=== PATIENT | female | born 1980 | race Caucasian/White ===

== ENCOUNTER 2016-11-20 22:35 | Emergency (ER) | payer MEDICAID ==
[2016-11-20 22:59] VITALS: BP 123/74
[2016-11-21] MEDS ORDERED: NOR10T PO (23:45)
[2016-11-21] MEDS ORDERED: LIPI10 PO (23:45)
[2016-11-21] MEDS ORDERED: XANAX2 MG PO (23:45)
[2016-11-21] MEDS ORDERED: SYNTHROID0.05 MG PO (23:46)
[2016-11-21] MEDS ORDERED: ABILIFY5 M1 PO (23:47)
[2016-11-21] MEDS ORDERED: ZYLOPRIM300 MG PO (23:47)
[2016-11-21] MEDS ORDERED: ZOLOFT25 MG PO (23:47)
[2016-11-21] MEDS ORDERED: PROCRIT2000 U/ML IJ (23:48)
== END 2016-11-21 02:09 | disposition left against medical advice (07) ==
LOC: ED 22:35
DX: Z53.21 Procedure and treatment not carried out due to patient leaving prior to being seen by health care provider (principal)

== ENCOUNTER 2016-11-21 21:50 | Inpatient (IN) | payer MEDICAID ==
[~2016-11-21] VITALS: Ht 149.9 cm; Wt 63.6 kg
--- NOTE | 2016-11-21 22:43 | NUR ---
PT SITTING UP IN BED, AAOX4 WITH C/O REDNESS/DRAINAGE AT FISTULA SITE X 3 DAYS. FISTULA PLACED 2 WEEKS AGO.
[2016-11-21 22:52] LABS: PLATELET COUNT 380 x10^3mcL (130-400)
[2016-11-21 22:53] LABS: BASOPHIL % 4.6 % (0-2); RED CELL DISTRIBUTION WIDTH 19.5 % (11.5-14.5)
[2016-11-21 23:11] LABS: ALBUMIN 3.6 g/dL (3.4-5.0); BILIRUBIN TOTAL 0.2 mg/dL (0.20-1.00); CARBON DIOXIDE 18.4 mmol/L (21-32); POTASSIUM SERUM 3.4 mmol/L (3.5-5.1)
[2016-11-21 23:15] LABS: TOTAL PROTEIN, SERUM 8.5 g/dL (6.4-8.2)
[2016-11-21 23:17] LABS: CK-MB < 0.5 ng/mL (0-3.6); CREATINE KINASE 47 U/L (26-192); CREATININE SERUM 5.5 mg/dL (0.6-1.0)
--- NOTE | 2016-11-21 23:44 | NUR ---
PT RESTING IN BED WITH NO SIGNS OF DISTRESS AT THIS TIME.
[2016-11-21] MEDS ORDERED: XANAX2 MG PO (23:45)
[2016-11-21] MEDS ORDERED: NOR10T PO (23:45)
[2016-11-21] MEDS ORDERED: LIPI10 PO (23:45)
[2016-11-21] MEDS ORDERED: SYNTHROID0.05 MG PO (23:46)
[2016-11-21] MEDS ORDERED: ZYLOPRIM300 MG PO (23:47)
[2016-11-21] MEDS ORDERED: ZOLOFT25 MG PO (23:47)
[2016-11-21] MEDS ORDERED: ABILIFY5 M1 PO (23:47)
[2016-11-21] MEDS ORDERED: PROCRIT2000 U/ML IJ (23:48)
[2016-11-22] VITALS (7 sets, daily range): BP systolic 92–112; BP diastolic 50–71
--- NOTE | 2016-11-22 00:18 | NUR ---
REPORT GIVEN TO ANTHONY VILLANUEVA.
[2016-11-22 00:49] LABS: AMYLASE 92 U/L (25-115); HDL CHOLESTEROL 50 mg/dL (40-60); LIPASE 207 IU/L (73-393); MAGNESIUM 3.3 mg/dL (1.8-2.4); PHOSPHOROUS 4.7 mg/dL (2.5-4.9)
[2016-11-22 00:51] LABS: CHOLESTEROL 413 mg/dL (<200); CHOLESTEROL/HDL RATIO 8.3; TRIGLYCERIDES 916 mg/dL (<150)
[2016-11-22 00:54] LABS: T3 TOTAL 0.55 ng/mL
--- NOTE | 2016-11-22 01:03 | NUR ---
RECEIVED PATIENT FROM ED VIA GUERNEY, PATIENT ALERT AND ORIENTED SPOUSE AT BEDSIDE, TELE # 11 SR, IV ACCESS TO R HAND WNL, C/O PAIN TO LUE AND WILL MEDICATE ORDERED, CULTURE OBTAINED FOR SELAM WOUND, WOUND PHOTO DOCUMENTED, ORIENTED PATIENT TO ROOM AND SURROUNDINGS, BED IN LOW POSITION, BED RAILS UP X 2, CALL LIGHT WITHIN REACH, WILL ENDORSE CARE TO PRIMARY NURSE ANTHONY VILLANUEVA
--- NOTE | 2016-11-22 01:04 | NUR ---
PT C/O PAIN TO HER LT ARM AV SHUNT SITE 7/10 LEVEL. NORCO 7.5/325 MG PO GIVEN.
[2016-11-22 01:11] LABS: FREE T4 0.67 ng/dL (0.76-1.46); FREE THYROXINE INDEX 1.4 ug/dL (1.4-4.5); T4(THYROXINE) 4.7 ug/dL (4.7-13.3)
--- NOTE | 2016-11-22 01:13 | NUR ---
INFORMED DR. SAUCEDA REGARDING LACTIC=2.9 AND K=3.4 .
--- NOTE | 2016-11-22 02:04 | NUR ---
PT VERBALIZED RELIEF OF LT ARM PAIN FROM NORCO AND STATED PAIN LEVEL IS DOWN TO 2/10.
[2016-11-22 02:37] LABS: microscopic required? YES; urine erythrocyte 3+ (NEGATIVE)
[2016-11-22 02:47] LABS: AMPHETAMINE QUAL UR NONE DETECTED (NEG <=1000)
--- NOTE | 2016-11-22 05:05 | NUR ---
PT ASLEEP COMFORTABLY AT THIS TIME. SHE WAS MEDICATED FOR PAIN X1 W/ RELIEF. DRESSING TO LT ARM AV SHUNT SITE CDI. PT VOIDED X1. W/ IVF NS AT 100 CC/HR.
[2016-11-22 06:16] LABS: BASOPHIL % 0.3 % (0-2); PLATELET COUNT 333 x10^3mcL (130-400)
[2016-11-22 06:30] LABS: CARBON DIOXIDE 17.1 mmol/L (21-32); MAGNESIUM 3.1 mg/dL (1.8-2.4); POTASSIUM SERUM 3.4 mmol/L (3.5-5.1)
[2016-11-22 06:57] LABS: CREATININE SERUM 5.4 mg/dL (0.6-1.0); RED CELL DISTRIBUTION WIDTH 19.6 % (11.5-14.5)
--- NOTE | 2016-11-22 06:58 | NUR ---
DR. SAUCEDA INFORMED REGARDING BUN=79 AND CREA=5.4 .
--- NOTE | 2016-11-22 07:54 | NUR ---
RECEIVED PT LAYING IN BED ASLEEP. NO APPARENT SIGNS OF ACUTE DISTRESS NOTED AT THIS TIME, RESPIRATIONS EVEN AND UNLABORED. IV SITE APPEARS PATENT AND INFUSING WELL. CALL LIGHT WITHIN REACH, BED IN LOWEST POSITION. WILL CONTINUE TO MONITOR
--- NOTE | 2016-11-22 08:30 | NUR ---
AM ROUNDS DONE. PER DR. CISNEROS, WILL ARRANGE FOR EXPORT DOCUMENTS CLERK TO COMEV IN FOR CONSULT. WILL CONTINUE WITH IV ABX. PT AGREES TO PLAN OF CARE. CALL LIGHT WITHIN REACH. BED IN LOWEST POSITION. WILL CONTINUE TO MONITOR
--- NOTE | 2016-11-22 10:56 | NUR ---
PT ASKED FOR PRN XANAX. ACCORDING TO EMAR, MED IS SCHEDULE FOR HS TIMES. CALLED DR. RAMIREZ AND SHE WILL LOOK INTO ADJUSTING ORDER. ALSO, PT ASKED ABOUT FOOD. DOCTOR STATES THAT SHE WAS WAITING FOR THE NEPHRO CONSULT BEFORE PROCEDING WITH DIET ORDER. WILL CONTINUE TO MONITOR
--- NOTE | 2016-11-22 12:54 | NUR ---
PT C/O LEFT ARM PAIN AT SITE OF CELLULITIS. GIVEN NORCO PO PRN FOR PAIN. CALL LIGHT WITHIN REACH. BED IN LOWEST POSITION. FAMILY AT BEDSIDE. WILL CONTINUE TO MONITOR
--- NOTE | 2016-11-22 13:39 | NUR ---
CALLED DR. RAMIREZ AND SPOKE TO HER IN REGARDS TO THE THE ORDER DR. MCGOVERN PUT IN FOR K+ 30 mEQ AND SODIUM BARCARB. PHARMACY CALLED UP QUESTIONING ORDER BECAUSE PT ALREADY HAS K+ TAB ORDER BID ON EMAR. DR. RAMIREZ STATED THAT SHE WOULD REACH OUT TO DR. MCGOVERN TO DISCUSS THE NEW ORDERS BECAUSE SHE WAS NOT AWARE OF THEM. WILL CONTINUE TO MONITOR
--- NOTE | 2016-11-22 14:22 | NUR ---
REPLACED DRESSING TO L UPPER ARM. NO VISIBLE DRAINAGE TO SITE NOTED. DRESSING IS CDI. WILL CONTINUE TO MONITOR
--- NOTE | 2016-11-22 14:25 | NUR ---
SPOKE TO DR. RAMIREZ IN REGARDS TO SODIUM BICARB AND POTASSIUM ORDER. STATED THAT SHE HAD PUT A CALL OUT TO DR. MCGOVERN BUT HAS YET TO HEAR BACK FROM HER. DR. RAMIREZ REQUESTED TO HOLD OFF ON ADMINISTERING ORDER UNTIL SHE HEARS BACK FROM HER. WILL CONTINUE TO MONITOR
--- NOTE | 2016-11-22 17:59 | NUR ---
PT RESTING IN BED ASLEEP. NO APPARENT SIGNS OF ACUTE DISTRESS NOTED. RESPIRATIONS EVEN AND UNLABORED. IV INFUSING WELL. CALL LIGHT WITHIN REACH. BED IN LOWEST POSITION. WILL CONTINUE TO MONITOR
--- NOTE | 2016-11-22 19:30 | NUR ---
PT IS ALERT AND ORIENTED X 4. PLEASANT AND COOPERATIVE. LUNGS CLEAR ON AUSCULTATIONS BILATERALLY. ROOM AIR. 02SAT 99% ROOM AIR. AMBULATORY. STILL HAS IV NS AT 100 ML PER HOUR INFUSING WELL IN THE RIGHT FOREARM. VANCOMYCIN IVPB WAS ORDERED. STILL HAS LEFT ARM DRESSING FOR THE LEFT INCISION SHUNT PLACEMENT DRESSING. STILL HAS IV NS AT 100 ML PER HOUR IN THE RIGHT FOREARM. VOIDING WELL. WILL MONITOR.
--- NOTE | 2016-11-22 21:35 | NUR ---
PT C/O MODERATE HEADACHE PAIN 710. MEDICATED WITH NORCO 1 TAB PO. WILL MONITOR. XANAX 2 MG PO WAS ALSO GIVEN. VANCOMYCIN 1 GM IVPB WAS ADMINISTERED.
--- NOTE | 2016-11-23 04:58 | NUR ---
PT IS RESTING WELL. STILL HAS IV NS AT 100 ML PER HOUR INFUSING WELL. RECEIVED A DOSE OF VANCOMYCIN IVPB LAST NIGHT. WITHOUT ADVERSE REACTION NOTED. RECEIVED XANAX LAST NIGHT BEFORE GOING TO SLEEP. TOLERATED WELL. MADE COMFORTABLE IN BED. CALL LIGHT WITHIN EASY REACH.
[2016-11-23 06:21] LABS: CALCIUM 8.3 mg/dL (8.5-10.1); CARBON DIOXIDE 15.6 mmol/L (21-32); MAGNESIUM 2.8 mg/dL (1.8-2.4); POTASSIUM SERUM 4.2 mmol/L (3.5-5.1)
[2016-11-23 06:22] LABS: BASOPHIL % 1.2 % (0-2); PLATELET COUNT 325 x10^3mcL (130-400)
[2016-11-23 06:25] LABS: CREATININE SERUM 5.1 mg/dL (0.6-1.0)
[2016-11-23 06:27] VITALS: BP 94/52
[2016-11-23 06:33] LABS: RED CELL DISTRIBUTION WIDTH 19.4 % (11.5-14.5)
--- NOTE | 2016-11-23 07:00 | NUR ---
DR. MCGOVERN AT BEDSIDE ASSESSING PT.
--- NOTE | 2016-11-23 07:26 | NUR ---
PT RECEIVED DURING CHANGE OF SHIFT, A/OX4, NO TELE, DENIES CHEST PAIN, PULSES PRESENT, NO EDEMA NOTED, LUNGS CTA ON RA, DENIES SOB, BREATHING EVEN AND UNLABORED, LBM 11/22/16, BOWEL SOUNDS ACTIVE, ABLE TO VOID, AV SHUNT TO SELAM, BRUIT AND THRILL PRESENT, HAS NOT STARTED HD TX YET, AMBULATORY, DRESSING TO AV SHUNT CDI, REDNESS TO AV SHUNT NOTED, NO DRAINAGE, DENIES ALL PAIN AT THIS TIME, IV TO RFA INFUSING NS AT 100ML/HR, CALM AND COOPERATIVE, CALL LIGHT WITHIN REACH, WILL CONTINUE TO MONITOR.
--- NOTE | 2016-11-23 08:17 | NUR ---
PT DENIES SOB, DENIES PAIN, MORNING MEDS GIVEN, CALL LIGHT WITHIN REACH, FINISHED 80% OF BREAKFAST, CALL LIGHT WITHIN REACH, WILL CONTINUE TO MONITOR.
--- NOTE | 2016-11-23 08:25 | NUR ---
DR. ZHANG AND RESIDENTS MAKING ROUNDS, PLAN OF CARE DISCUSSED, NEED FOR IV ANTIBIOTICS DISCUSSED.
--- NOTE | 2016-11-23 09:04 | NUR ---
PT ASLEEP, NO INDICATION OF PAIN, BREATHING EVEN AND UNLABORED, CALL LIGHT WITHIN REACH, WILL CONTINUE TO MONITOR.
[2016-11-23 09:58] VITALS: BP 98/61
--- NOTE | 2016-11-23 10:13 | NUR ---
PT ASLEEP, NO INDICATION OF PAIN, BREATHING EVEN AND UNLABORED, CALL LIGHT WITHIN REACH, WILL CONTINUE TO MONITOR.
--- NOTE | 2016-11-23 11:03 | NUR ---
PT DENIES SOB, C/O H/A 10/25, REQUESTED NORCO, MEDICATED PER EMAR, CALL LIGHT WITHIN REACH, WILL CONTINUE TO MONITOR.
--- NOTE | 2016-11-23 12:15 | NUR ---
PT ASLEEP BUT AROUSABLE, NO INDICATION OF PAIN, BREATHING EVEN AND UNLABORED, CALL LIGHT WITHIN REACH, WILL CONTINUE TO MONITOR.
--- NOTE | 2016-11-23 13:05 | NUR ---
PT ASLEEP, NO INDICATION OF PAIN, BREATHING EVEN AND UNLABORED, CALL LIGHT WITHIN REACH, WILL CONTINUE TO MONITOR.
--- NOTE | 2016-11-23 13:13 | NUR ---
Initial Nutrition Assessment Dx: Left arm cellulitis/fistula infection PMHx: Glycogen storage disease Type I, kidney failure, anemia and gout PSHx: Liver biopsy, Corrective eye surgery for wandering eye, AV fistula placement in left arm Labs: (11/23) B, BUN:73H, Cr:5.1H, Ca:8.3L, Phos:6.0H, H/H:8.5/26L, (11/21) TH, Chol:413H, LDL:213H, M.8H, Lactic acid:2.9H, Meds: Colace, Lactinex, Oscal, Sodium Bicarbonate, NS IVF, Synthroid, Zofran. Diet:Renal PO Intake: (11/22) L:100%, D:80% Ht: 60in Wt: 140#, 63.61kg BMI: 28.3kg/m2 (overweight) IBW: 100#, 45kg %IBW: 140% UBW:134#. Pt reports weight gain possibly 2/2 thyroid issue. Age:36 Food Allergies:None Skin:dressing over av shunt, av shunt shows redness, no drainage noted. Dima:21 Edema:No edema GI: Last BM:11/22 Pt admitted with left arm cellulitis at site of AV fistula. Per progress note 11/22, pt was seen by timber faller Dr Diamond, who does not recommend urgent dialysis at this time. MD ordered sodium bicarbonate TID due to acidosis.Dr. Marley consulted. Pt states she feels much better. Per progress note 11/23, pt's antibiotics changed from vancomycin to be dosed by pharmacy. Pt will stay at least one more day for IV vancomycin. During visit pt reports good appetite with no c/o N/V/D. Pt states she will probably be discharged tomorrow and she has an appointment with a timber faller and are in the process of finding her a dialysis center to start hemodialysis. Problem with: N: NoV:No D:No C:Pt c/o constipation with BM yesterday with hard stool most likely secondary to pain medications, per pt. Problems with: Chewing:No Swallowing: No Current appetite: good Recent wt change:6# wt gain %wt change:-4% Vitamin/Supplement use:Calcium, Iron and Fish oil. Special diet at home:Regular Physical activity:walking Education: Provided pt with educational handout, "Chronic Kidney Disease Stage 5 Nutrition Therapy" Pt was concerned as to what to eat since she will be starting dialysis. Went over foods high in protein, potassium and phosphorus. What foods to limit/avoid and what foods are acceptable (low potassium/low phosphorus) Estimated Nutritional Needs Based on ideal body weight 45kg Energy: 1575kcal/d (35kcals/kg for CKD-5, no dialysis) Protein:45 g/d (1.0g/kg adult maintenance/GFR<25, no dialysis) Fluid: 1575ml/d (1 ml/kcal) or per doctor Nutrition Diagnosis 1. Altered nutrition labs related to ESRD as evidenced by elevated BUN: 73, Cr:5.1, Phos: 6.0. Intervention 1.Recommend continue current renal diet. 2. Recommend Nephro-vernon and Phoslo. Monitor/Evaluate Goal: PO intake at least 75% of estimated needs Monitor: PO intake, Labs, GI function F/U in 7 days as low risk 11/30
--- NOTE | 2016-11-23 13:14 | NUR ---
1.Recommend continue current renal diet. 2.Recommend Nephro-vernon and Phoslo. Pt with elevated Phos:6.0
--- NOTE | 2016-11-23 14:05 | NUR ---
PT ASLEEP BUT AROUSABLE, NO INDICATION OF PAIN, BREATHING EVEN AND UNLABORED, CALL LIGHT WITHIN REACH, WILL CONTINUE TO MONITOR.
--- NOTE | 2016-11-23 15:05 | NUR ---
PT ASLEEP, NO INDICATION OF PAIN, BREATHING EVEN AND UNLABORED, CALL LIGHT WITHIN REACH, WILL CONTINUE TO MONITOR.
--- NOTE | 2016-11-23 16:13 | NUR ---
PT DENIES SOB, DENIES PAIN, CALL LIGHT WITHIN REACH, WILL CONTINUE TO MONITOR.
--- NOTE | 2016-11-23 17:13 | NUR ---
PT DENIES SOB, DENIES PAIN, CALL LIGHT WITHIN REACH, WILL CONTINUE TO MONITOR.
[2016-11-23 17:36] VITALS: BP 133/64
--- NOTE | 2016-11-23 18:20 | NUR ---
PT DENIES SOB, C/O PAIN 6/10 IN LEFT ARM, WILL MEDICATE PER EMAR, WILL ENDORSE PT TO NEXT SHIFT.
[2016-11-23 19:05] VITALS: BP 116/73
--- NOTE | 2016-11-23 19:05 | NUR ---
RECIEVED PT AWAKE ALERT AND VERBALLY RESPONSIVE.DENIES CHESTPAIN AT THIS TIME.BP 116/73 MMHG,HR 78.DENIES ANY PAIN.DRESSING TO L ARM SHUNT.NO DRAINAGE NOTED.GOOD BRUIT/THRILLS.WILL CONTINUE TO MONITOR.
--- NOTE | 2016-11-24 04:45 | NUR ---
PT SLEPT WELL.DENIES ANY PAIN ALL NIGHT.DRESSING TO L AV SHUNT CDI.ALL NEEDS MET.WILL CONTINUE TO MONITOR.
[2016-11-24 05:49] VITALS: BP 104/50
[2016-11-24 05:52] VITALS: BP 104/50
[2016-11-24 06:04] LABS: BASOPHIL % 0.2 % (0-2); PLATELET COUNT 309 x10^3mcL (130-400)
[2016-11-24 06:06] LABS: RED CELL DISTRIBUTION WIDTH 19.1 % (11.5-14.5)
[2016-11-24 06:20] LABS: CALCIUM 8.4 mg/dL (8.5-10.1); CARBON DIOXIDE 19.2 mmol/L (21-32); MAGNESIUM 2.4 mg/dL (1.8-2.4); PHOSPHOROUS 5.3 mg/dL (2.5-4.9); POTASSIUM SERUM 3.9 mmol/L (3.5-5.1)
[2016-11-24 06:27] LABS: CREATININE SERUM 4.8 mg/dL (0.6-1.0)
[2016-11-24 06:31] VITALS: BP 109/72
--- NOTE | 2016-11-24 07:45 | NUR ---
RECEIVED PT IN BED. ASSESSED AND DOCUMENTED. DENIES PAIN THIS TIME. SAFTEY PRECAUTIONS ON. WILL MONITOR.
--- NOTE | 2016-11-24 08:10 | NUR ---
AND RESIDENTS DID ROUNDS. EXPLAINED THE PLAN OF CARE AND ANSWERED ALL PT'S QUESTIONS.
--- NOTE | 2016-11-24 08:30 | NUR ---
CHECKED WITH PHARMACY ABOUT VANCOMYCIN AND INFORMED THEM VANCOMYCIN RANDOM IS 20. PHARMACIST SAID THEY ARE BEEN CHECKING ON THAT AND THEY WILL TAKE CARE OF IT.
--- NOTE | 2016-11-24 10:00 | NUR ---
PAGED AND VERIFIED WITH ABOUT POTTASIUM PO ORDER. SAID SHE THINK PT'S POTTASIUM MAY DROP SO GOOD TO GIVE 10MEQ KCL.PHARMACY AWARE.PHARMACIST SAID THEY WILL ORDER.WILL GIVE.
[2016-11-24 10:11] VITALS: BP 105/66
--- NOTE | 2016-11-24 14:00 | NUR ---
PT RESTING IN BED COMFORTABLY. DENIES PAIN THIS TIME. WILL MONITOR.
[2016-11-24 17:27] VITALS: BP 112/76
--- NOTE | 2016-11-24 19:05 | NUR ---
PT RESTING IN BED COMFORTABLY. NO DISTRESS NOTED. GAVE REPORT TO NEXT SHIFT NURSE.
--- NOTE | 2016-11-24 19:50 | NUR ---
PT ALERT/ORIENTED X4. NO C/O PAIN. SMALL AMOUNT OF BROWN DISCHARGE NOTED ON THE INSIDE OF THE DRESSING AND REDNESS NOTED WHERE THE TAPE IS. APPLIED NEW DRESSING WITH NON ADHERENT DRESSING WITH GUAZE DRESSING OVER IT, APPLIED PAPER TAPE TO SECURE DRESSING. PT ASSESSED; SEE NSG FLOWSHEET. SAFETY REINFORCED; SEE EDUCAT SHEET. WILL CONTINUE TO MONITOR.
--- NOTE | 2016-11-24 21:00 | NUR ---
PT AWAKE. NO DISTRESS NOTED. WILL CONTINUE TO MONITOR.
[2016-11-24 23:13] VITALS: BP 121/81
--- NOTE | 2016-11-24 23:30 | NUR ---
PT SLEEPING. NO DISTRESS NOTED. WILL CONTINUE TO MONITOR.
--- NOTE | 2016-11-25 02:14 | NUR ---
PT SLEEPING. NO DISTRESS NOTED. WILL CONTINUE TO MONITOR.
[2016-11-25 05:09] VITALS: BP 109/75
--- NOTE | 2016-11-25 05:19 | NUR ---
PT SLEPT IN LONG INTERVALS THROUGHOUT THE NIGHT. MEDICATED 1X DURING SHIFT FOR PAIN TO LUE (SEE EMAR). WILL CONTINUE TO MONITOR.
[2016-11-25 06:37] LABS: CALCIUM 8.8 mg/dL (8.5-10.1); CARBON DIOXIDE 19.7 mmol/L (21-32); PHOSPHOROUS 4.5 mg/dL (2.5-4.9); POTASSIUM SERUM 4.1 mmol/L (3.5-5.1)
[2016-11-25 06:57] LABS: CREATININE SERUM 4.7 mg/dL (0.6-1.0)
[2016-11-25 07:29] LABS: PLATELET COUNT 329 x10^3mcL (130-400)
[2016-11-25 07:30] LABS: RED CELL DISTRIBUTION WIDTH 18.9 % (11.5-14.5)
--- NOTE | 2016-11-25 07:45 | NUR ---
RECEIVED PT IN BED. ASSESSED AND DOCUMENTED. DENIES PAIN THIS TIME. SAFTEY PRECAUTIONS ON. WILL MONITOR.
[2016-11-25 08:04] LABS: BAND NEUTROPHIL 3 % (0-10); BASOPHIL 0 % (0-2); MONOCYTE 8 % (0-7); SEGMENTED NEUTROPHILS 40 % (37-75)
[2016-11-25 08:05] LABS: rbc morphology (normal/abnorm) ABNORMAL (NORMAL); tear drop cell (dacryocyte) 1+
[2016-11-25 08:06] LABS: PLATELET MORPHOLOGY LARGE PLATELET SEEN
[2016-11-25] MEDS ORDERED: LAC PO (08:14)
--- NOTE | 2016-11-25 08:35 | NUR ---
AND RESIDENTS DID ROUNDS, EXPLAINED THE PLAN OF CARE.
[2016-11-25 09:30] VITALS: BP 113/76
[2016-11-25] MEDS ORDERED: CLINDAMYCIN HC150 MG PO (10:33)
[2016-11-25 13:43] VITALS: BP 113/76
[2016-11-25 13:46] VITALS: BP 113/76
--- NOTE | 2016-11-25 14:30 | NUR ---
DISCHARGE INSTRUCTIONS GIVEN.PB SIGNED AND SENT WITH PT. IV REMOVED AND DRESSING APPLIED. MEDICAL LAB SPECIALIST TOOK PT TO LOBBY VIA W/C ACCOMPANIED BY PT'S .
== END 2016-11-25 14:26 | disposition home or self-care (01) | DRG 383 ==
LOC: ED 21:50 → MU 23:34 → DU 23:34 → MU 11-22 09:54 → DU 11-25 14:26
PROVIDERS: Emergency Medicine; Family Medicine; ADMIT Student in an Organized Health Care Education/Training Program
DX: L03.114 Cellulitis of left upper limb (principal); N17.0 Acute kidney failure with tubular necrosis; E74.01 von Gierke disease; I12.0 Hypertensive chronic kidney disease with stage 5 chronic kidney disease or end stage renal disease; N18.6 End stage renal disease; E87.6 Hypokalemia; M10.9 Gout, unspecified; D64.9 Anemia, unspecified; E78.5 Hyperlipidemia, unspecified; Z68.28 Body mass index [BMI] 28.0-28.9, adult
CPT/HCPCS: 83880; 84439; J0690; J2270; J3370; J7030; Q0092

== ENCOUNTER 2017-01-18 15:43 | Emergency (ER) | payer MEDICAID ==
[~2017-01-18] VITALS: Ht 149.9 cm; Wt 59.0 kg
[~2017-01-18 15:43] MED LIST: ABILIFY5 M1 PO; CLINDAMYCIN HC150 MG PO; LAC PO; LIPI10 PO; NOR10T PO; PROCRIT2000 U/ML IJ; SYNTHROID0.05 MG PO; XANAX2 MG PO; ZOLOFT25 MG PO; ZYLOPRIM300 MG PO
[2017-01-18 16:24] LABS: PLATELET COUNT 274 x10^3mcL (130-400)
[2017-01-18 16:53] LABS: RED CELL DISTRIBUTION WIDTH 15.1 % (11.5-14.5)
[2017-01-18 17:12] LABS: BAND NEUTROPHIL 0 % (0-10); BASOPHIL 0 % (0-2); MONOCYTE 7 % (0-7); PLATELET MORPHOLOGY PLATELETS NORMAL; SEGMENTED NEUTROPHILS 66 % (37-75); rbc morphology (normal/abnorm) NORMAL (NORMAL)
[2017-01-18 17:15] LABS: ERYTHROCYTE SED RATE 109 mm/hr (0-20)
[2017-01-18 17:35] VITALS: BP 108/83
== END 2017-01-18 17:35 | disposition home or self-care (01) ==
LOC: ED 15:43
PROVIDERS: Emergency Medicine
DX: M10.062 Idiopathic gout, left knee (principal); R21 Rash and other nonspecific skin eruption; E74.01 von Gierke disease; E03.9 Hypothyroidism, unspecified; Z79.899 Other long term (current) drug therapy
CPT/HCPCS: 36415; J1885

== ENCOUNTER 2017-03-14 19:39 | Inpatient (IN) | payer MEDICAID ==
[~2017-03-14] VITALS: Ht 149.9 cm; Wt 51.4 kg
[2017-03-14 21:47] LABS: BILIRUBIN TOTAL 0.27 mg/dL (0.20-1.00); CALCIUM 7.1 mg/dL (8.5-10.1); CARBON DIOXIDE 20.6 mmol/L (21-32); FREE T4 0.76 ng/dL (0.76-1.46); TOTAL PROTEIN, SERUM 7.4 g/dL (6.4-8.2)
[2017-03-14 21:51] LABS: CREATININE SERUM 4.3 mg/dL (0.6-1.0); POTASSIUM SERUM 2.6 mmol/L (3.5-5.1)
[2017-03-14 21:53] LABS: UA SPECIFIC GRAVITY <=1.005 (1.005-1.035); microscopic required? YES; urine erythrocyte TRACE (NEGATIVE)
[2017-03-14 21:59] LABS: PLATELET COUNT 499 x10^3mcL (130-400); RED CELL DISTRIBUTION WIDTH 17.4 % (11.5-14.5)
[2017-03-14 22:24] LABS: BAND NEUTROPHIL 0 % (0-10); BASOPHIL 0 % (0-2); MONOCYTE 1 % (0-7); SEGMENTED NEUTROPHILS 41 % (37-75)
[2017-03-14 22:25] LABS: rbc morphology (normal/abnorm) ABNORMAL (NORMAL)
[2017-03-14 22:26] LABS: PLATELET MORPHOLOGY PLATELETS INCREASED
[2017-03-14 23:46] VITALS: BP 111/57
[2017-03-15] VITALS (8 sets, daily range): BP systolic 83–126; BP diastolic 49–85
[2017-03-15 00:45] LABS: T3 TOTAL 0.67 ng/mL
[2017-03-15 00:59] LABS: AMYLASE 102 U/L (25-115); HDL CHOLESTEROL 43 mg/dL (40-60); MAGNESIUM 1.9 mg/dL (1.8-2.4); PHOSPHOROUS 3.5 mg/dL (2.5-4.9)
[2017-03-15 01:00] LABS: FREE T4 0.76 ng/dL (0.76-1.46); T4(THYROXINE) 5.8 ug/dL (4.7-13.3)
[2017-03-15 01:01] LABS: CHOLESTEROL 411 mg/dL (<200); CHOLESTEROL/HDL RATIO 9.6; TRIGLYCERIDES 992 mg/dL (<150)
[2017-03-15 06:27] LABS: IRON 15 ug/dL (50-170)
[2017-03-15 06:28] LABS: TOTAL IRON BINDING CAPACITY 232 ug/dL (250-450)
[2017-03-15 06:37] LABS: CALCIUM 7.3 mg/dL (8.5-10.1); CARBON DIOXIDE 18.6 mmol/L (21-32)
[2017-03-15 06:45] LABS: CREATININE SERUM 4.3 mg/dL (0.6-1.0); POTASSIUM SERUM 2.9 mmol/L (3.5-5.1)
[2017-03-15 06:51] LABS: AMPHETAMINE QUAL UR NONE DETECTED (NEG <=1000)
[2017-03-15 07:49] LABS: RED BLOOD CELLS 1.49 M/mm3 (4.10-5.10)
[2017-03-15 12:18] LABS: PLATELET COUNT 421 x10^3mcL (130-400)
[2017-03-15 12:23] LABS: CARBON DIOXIDE 14.8 mmol/L (21-32)
[2017-03-15 12:31] LABS: BAND NEUTROPHIL 4 % (0-10); BASOPHIL 0 % (0-2); MONOCYTE 6 % (0-7); SEGMENTED NEUTROPHILS 78 % (37-75)
[2017-03-15 12:32] LABS: CREATININE SERUM 4.2 mg/dL (0.6-1.0); PLATELET MORPHOLOGY PLATELETS INCREASED; POTASSIUM SERUM 2.7 mmol/L (3.5-5.1); rbc morphology (normal/abnorm) ABNORMAL (NORMAL)
[2017-03-15 17:29] LABS: CALCIUM 6.8 mg/dL (8.5-10.1); CARBON DIOXIDE 18.7 mmol/L (21-32); POTASSIUM SERUM 3.3 mmol/L (3.5-5.1)
[2017-03-15 20:07] LABS: PLATELET COUNT 367 x10^3mcL (130-400)
[2017-03-15 20:12] LABS: RED CELL DISTRIBUTION WIDTH 19.2 % (11.5-14.5)
[2017-03-16 05:54] VITALS: BP 112/76
[2017-03-16 07:00] LABS: CALCIUM 6.9 mg/dL (8.5-10.1); CARBON DIOXIDE 16.7 mmol/L (21-32); CREATININE SERUM 3.7 mg/dL (0.6-1.0); MAGNESIUM 1.3 mg/dL (1.8-2.4); PHOSPHOROUS 3.9 mg/dL (2.5-4.9); POTASSIUM SERUM 3.1 mmol/L (3.5-5.1)
[2017-03-16 08:28] LABS: PLATELET COUNT 358 x10^3mcL (130-400)
[2017-03-16 08:31] LABS: RED CELL DISTRIBUTION WIDTH 19.9 % (11.5-14.5)
[2017-03-16 10:00] VITALS: BP 116/74
[2017-03-16 10:47] LABS: BAND NEUTROPHIL 2 % (0-10); BASOPHIL 0 % (0-2); MONOCYTE 8 % (0-7); SEGMENTED NEUTROPHILS 73 % (37-75)
[2017-03-16 10:48] LABS: PLATELET MORPHOLOGY PLATELETS NORMAL; rbc morphology (normal/abnorm) ABNORMAL (NORMAL)
[2017-03-16 14:00] VITALS: BP 108/72
[2017-03-16 17:55] VITALS: BP 107/72
[2017-03-16 21:38] VITALS: BP 100/667; BP 100/67
[2017-03-17 06:05] VITALS: BP 109/73
[2017-03-17 07:35] LABS: PLATELET COUNT 338 x10^3mcL (130-400)
[2017-03-17 08:05] LABS: RED CELL DISTRIBUTION WIDTH 19.7 % (11.5-14.5)
[2017-03-17 08:07] LABS: ATYPICAL LYMPH 2 %; MONOCYTE 9 % (0-7); SEGMENTED NEUTROPHILS 70 % (37-75); rbc morphology (normal/abnorm) ABNORMAL (NORMAL)
[2017-03-17 08:13] LABS: CALCIUM 7.6 mg/dL (8.5-10.1); CARBON DIOXIDE 14.6 mmol/L (21-32); CREATININE SERUM 3.9 mg/dL (0.6-1.0); MAGNESIUM 1.6 mg/dL (1.8-2.4); PHOSPHOROUS 4.1 mg/dL (2.5-4.9); POTASSIUM SERUM 3.3 mmol/L (3.5-5.1)
[2017-03-17 10:00] VITALS: BP 104/68
[2017-03-17] MEDS ORDERED: PANTOPRAZOLE SO40 M1 PO (11:09)
[2017-03-17] MEDS ORDERED: CAR1 PO (11:37)
[2017-03-17 12:20] VITALS: BP 104/68
[2017-03-17] MEDS ORDERED: LEVAQUIN750 MG PO (12:28)
[2017-03-17] MEDS ORDERED: LAC PO (12:28)
== END 2017-03-17 13:32 | disposition home or self-care (01) | DRG 241 ==
LOC: ED 19:39 → DU 22:43
PROVIDERS: Emergency Medicine; Internal Medicine Gastroenterology; ADMIT Family Medicine
PROC: 0DB78ZX Excision of Stomach, Pylorus, Via Natural or Artificial Opening Endoscopic, Diagnostic (ICD-10-PCS; principal; 2017-03-15 09:30)
PROC: 0W3P8ZZ Control Bleeding in Gastrointestinal Tract, Via Natural or Artificial Opening Endoscopic (ICD-10-PCS; 2017-03-15 09:30)
DX: K26.4 Chronic or unspecified duodenal ulcer with hemorrhage (principal); N17.0 Acute kidney failure with tubular necrosis; E74.01 von Gierke disease; E44.0 Moderate protein-calorie malnutrition; D62 Acute posthemorrhagic anemia; N39.0 Urinary tract infection, site not specified; N18.4 Chronic kidney disease, stage 4 (severe); E83.51 Hypocalcemia; E03.9 Hypothyroidism, unspecified; E87.6 Hypokalemia; M10.9 Gout, unspecified; E78.5 Hyperlipidemia, unspecified; Z68.22 Body mass index [BMI] 22.0-22.9, adult
CPT/HCPCS: 43235; 83880; 84439; 90658; C9113; J0171; J0696; J1200; J1610; J2250; J2270; J2310; J2916; J3010; J3475; J3480; J3490; J7030; J7050; P9016; Q0092; Q0163

== ENCOUNTER 2017-05-25 08:27 | Inpatient (IN) | payer MEDICAID ==
[~2017-05-25] VITALS: Ht 149.9 cm; Wt 52.0 kg
[~2017-05-25 08:27] MED LIST changes: +CAR1 PO; +LEVAQUIN750 MG PO; +PANTOPRAZOLE SO40 M1 PO
[2017-05-25 08:43] VITALS: Ht 149.9 cm; Wt 52.0 kg
[2017-05-25 10:04] LABS: CALCIUM 7.4 mg/dL (8.5-10.1); CARBON DIOXIDE 17.1 mmol/L (21-32); CHLORIDE SERUM 109 mmol/L (98-107); CREATININE SERUM 3.9 mg/dL (0.6-1.0); GFR1 14 mL/min; GLUCOSE SERUM 97 mg/dL (74-106); POTASSIUM SERUM 3.6 mmol/L (3.5-5.1); SODIUM SERUM 144 mmol/L (136-145)
[2017-05-25 10:05] LABS: BASOPHIL % 0.3 % (0-2); PLATELET COUNT 391 x10^3mcL (130-400)
[2017-05-25 10:09] LABS: RED CELL DISTRIBUTION WIDTH 18.7 % (11.5-14.5)
[2017-05-25 10:12] LABS: ALBUMIN 3.4 g/dL (3.4-5.0); BILIRUBIN TOTAL 0.28 mg/dL (0.20-1.00); TOTAL PROTEIN, SERUM 8.3 g/dL (6.4-8.2)
[2017-05-25 10:13] LABS: ALKALINE PHOSPHATASE 196 U/L (46-116); ALT/SGPT 17 U/L (14-59); AST/SGOT 13 U/L (15-37); CHOLESTEROL 482 mg/dL (<200)
[2017-05-25 10:25] LABS: microscopic required? YES; urine erythrocyte TRACE (NEGATIVE)
[2017-05-25 10:38] LABS: AMPHETAMINE QUAL UR NONE DETECTED (NEG <=1000)
[2017-05-25 12:20] VITALS: BP 144/84
[2017-05-25 12:29] VITALS: BP 144/84
[2017-05-25 13:05] LABS: AMYLASE 75 U/L (25-115); HDL CHOLESTEROL 46 mg/dL (40-60); LIPASE 224 IU/L (73-393); MAGNESIUM 1.8 mg/dL (1.8-2.4); PHOSPHOROUS 4.4 mg/dL (2.5-4.9)
[2017-05-25 13:13] LABS: FREE T4 0.78 ng/dL (0.76-1.46); FREE THYROXINE INDEX 2.3 ug/dL (1.4-4.5); T4(THYROXINE) 7.2 ug/dL (4.7-13.3)
[2017-05-25 13:15] LABS: T3 TOTAL 0.86 ng/mL
[2017-05-25 13:19] LABS: TRIGLYCERIDES 724 mg/dL (<150)
[2017-05-25 13:20] LABS: CHOLESTEROL 454 mg/dL (<200); CHOLESTEROL/HDL RATIO 9.9
[2017-05-25 18:00] VITALS: BP 145/93
[2017-05-25 20:48] VITALS: BP 131/74
[2017-05-26 05:21] VITALS: BP 116/70
[2017-05-26 06:58] LABS: BASOPHIL % 0.3 % (0-2); PLATELET COUNT 321 x10^3mcL (130-400)
[2017-05-26 07:02] LABS: RED CELL DISTRIBUTION WIDTH 19.2 % (11.5-14.5)
[2017-05-26 08:06] LABS: CALCIUM 7.1 mg/dL (8.5-10.1); CARBON DIOXIDE 14.7 mmol/L (21-32); CREATININE SERUM 3.8 mg/dL (0.6-1.0); POTASSIUM SERUM 3.6 mmol/L (3.5-5.1)
[2017-05-26 10:16] VITALS: BP 125/83
[2017-05-26] MEDS ORDERED: NIFEDIPINE30 MG PO (10:17)
[2017-05-26] MEDS ORDERED: LIPITOR80 MG PO (10:50)
[2017-05-26] MEDS ORDERED: FENOFIBRATE54 M1 PO (10:51)
[2017-05-26] MEDS ORDERED: FERROUS SULFAT325 M2 PO (11:48)
[2017-05-26 15:51] VITALS: BP 125/83
== END 2017-05-26 16:50 | disposition home or self-care (01) | DRG 52 ==
LOC: ED 08:27 → DU 11:08
PROVIDERS: Emergency Medicine; Family Medicine
DX: I67.4 Hypertensive encephalopathy (principal); N17.0 Acute kidney failure with tubular necrosis; E74.00 Glycogen storage disease, unspecified; E03.9 Hypothyroidism, unspecified; M10.9 Gout, unspecified; D64.9 Anemia, unspecified; F41.9 Anxiety disorder, unspecified; E87.2 Acidosis; I12.9 Hypertensive chronic kidney disease with stage 1 through stage 4 chronic kidney disease, or unspecified chronic kidney disease; F32.9 Major depressive disorder, single episode, unspecified; E87.8 Other disorders of electrolyte and fluid balance, not elsewhere classified; E83.51 Hypocalcemia; N18.9 Chronic kidney disease, unspecified; E78.5 Hyperlipidemia, unspecified; Z81.8 Family history of other mental and behavioral disorders
CPT/HCPCS: 83880; 84439; 90658; 90732; G0480; J2916; J7030; Q0092

== ENCOUNTER 2017-09-02 00:46 | Emergency (ER) | payer MEDICAID ==
[~2017-09-02] VITALS: Ht 149.9 cm; Wt 50.1 kg
[~2017-09-02 00:46] MED LIST changes: +FENOFIBRATE54 M1 PO; +FERROUS SULFAT325 M2 PO; +LIPITOR80 MG PO; +NIFEDIPINE30 MG PO
[2017-09-02 00:50] VITALS: Ht 149.9 cm; Wt 50.1 kg
[2017-09-02 01:44] LABS: UA SPECIFIC GRAVITY <=1.005 (1.005-1.035); microscopic required? YES; urine erythrocyte TRACE (NEGATIVE)
[2017-09-02 01:53] LABS: AMPHETAMINE QUAL UR NONE DETECTED (NEG <=1000)
[2017-09-02 02:41] LABS: ALBUMIN 3.9 g/dL (3.4-5.0); ALKALINE PHOSPHATASE 203 U/L (46-116); ALT/SGPT 21 U/L (14-59); AST/SGOT 27 U/L (15-37); BILIRUBIN DIRECT 0.07 mg/dL (0.0-0.2); BILIRUBIN TOTAL 0.31 mg/dL (0.20-1.00)
[2017-09-02 02:44] LABS: TOTAL PROTEIN, SERUM 8.7 g/dL (6.4-8.2)
[2017-09-02 02:53] LABS: CALCIUM 7.6 mg/dL (8.5-10.1); CARBON DIOXIDE 14.4 mmol/L (21-32); FREE T4 0.98 ng/dL (0.76-1.46); MAGNESIUM 1.8 mg/dL (1.8-2.4)
[2017-09-02 02:56] LABS: POTASSIUM SERUM 2.8 mmol/L (3.5-5.1)
[2017-09-02 03:29] LABS: PLATELET COUNT 310 x10^3mcL (130-400); RED CELL DISTRIBUTION WIDTH 13.9 % (11.5-14.5)
[2017-09-02 04:20] LABS: BAND NEUTROPHIL 2 % (0-10); MONOCYTE 3 % (0-7); SEGMENTED NEUTROPHILS 68 % (37-75)
[2017-09-02 04:21] LABS: PLATELET MORPHOLOGY LARGE PLATELET SEEN
[2017-09-02 04:22] LABS: rbc morphology (normal/abnorm) ABNORMAL (NORMAL)
[2017-09-02 05:26] VITALS: BP 129/78
== END 2017-09-02 05:26 | disposition home or self-care (01) ==
LOC: ED 00:46
PROVIDERS: Emergency Medicine
DX: F41.9 Anxiety disorder, unspecified (principal); N18.9 Chronic kidney disease, unspecified; G47.00 Insomnia, unspecified; R44.0 Auditory hallucinations; R44.1 Visual hallucinations; R10.9 Unspecified abdominal pain; E03.9 Hypothyroidism, unspecified
CPT/HCPCS: 84439; G0480; J2060; J7030

== ENCOUNTER 2017-11-11 14:45 | Inpatient (IN) | payer MEDICAID ==
[~2017-11-11] VITALS: Ht 149.9 cm; Wt 53.6 kg
[2017-11-11 15:04] VITALS: Ht 149.9 cm; Wt 53.6 kg
[2017-11-11 17:42] LABS: PLATELET COUNT 383 x10^3mcL (130-400)
[2017-11-11 17:46] LABS: BASOPHIL % 2.3 % (0-2); RED CELL DISTRIBUTION WIDTH 17.4 % (11.5-14.5)
[2017-11-11 17:59] LABS: ALBUMIN 3.7 g/dL (3.4-5.0); ALKALINE PHOSPHATASE 232 U/L (46-116); ALT/SGPT 33 U/L (14-59); AST/SGOT 25 U/L (15-37); BILIRUBIN TOTAL 0.22 mg/dL (0.20-1.00); CALCIUM 7.9 mg/dL (8.5-10.1); CARBON DIOXIDE 17.4 mmol/L (21-32); CHLORIDE SERUM 105 mmol/L (98-107); GLUCOSE SERUM 77 mg/dL (74-106); HDL CHOLESTEROL 51 mg/dL (40-60); LIPASE 226 IU/L (73-393); POTASSIUM SERUM 3.8 mmol/L (3.5-5.1); SODIUM SERUM 140 mmol/L (136-145)
[2017-11-11 18:04] LABS: CHOLESTEROL 280 mg/dL (<200); CHOLESTEROL/HDL RATIO 5.5; GFR1 12 mL/min; TOTAL PROTEIN, SERUM 8.5 g/dL (6.4-8.2); TRIGLYCERIDES 490 mg/dL (<150)
[2017-11-11 18:05] LABS: CREATININE SERUM 4.3 mg/dL (0.6-1.0)
[2017-11-11 18:08] LABS: T3 TOTAL 1.05 ng/mL
[2017-11-11 18:21] LABS: FREE T4 0.96 ng/dL (0.76-1.46); FREE THYROXINE INDEX 3.2 ug/dL (1.4-4.5)
[2017-11-11] MEDS ORDERED: PRO30 PO (18:53)
[2017-11-11] MEDS ORDERED: TRAZODONE50 M1 PO (18:53)
[2017-11-11] MEDS ORDERED: ALLOPURINOL300 M1 PO (18:53)
[2017-11-11 20:04] VITALS: BP 135/84
[2017-11-11 20:18] LABS: MAGNESIUM 2.1 mg/dL (1.8-2.4); PHOSPHOROUS 4.8 mg/dL (2.5-4.9)
[2017-11-12] VITALS (7 sets, daily range): BP systolic 106–127; BP diastolic 64–81
[2017-11-12 06:00] LABS: BASOPHIL % 0.7 % (0-2); PLATELET COUNT 316 x10^3mcL (130-400)
[2017-11-12 06:03] LABS: CARBON DIOXIDE 17.5 mmol/L (21-32); MAGNESIUM 1.9 mg/dL (1.8-2.4); PHOSPHOROUS 5.7 mg/dL (2.5-4.9); POTASSIUM SERUM 3.7 mmol/L (3.5-5.1)
[2017-11-12 06:10] LABS: CREATININE SERUM 4.3 mg/dL (0.6-1.0)
[2017-11-12 07:27] LABS: RED CELL DISTRIBUTION WIDTH 17.5 % (11.5-14.5)
[2017-11-13 05:55] VITALS: BP 104/64
[2017-11-13 06:15] LABS: BASOPHIL % 0.6 % (0-2); PLATELET COUNT 318 x10^3mcL (130-400)
[2017-11-13 06:29] LABS: CALCIUM 8.8 mg/dL (8.5-10.1); CARBON DIOXIDE 23.3 mmol/L (21-32); CREATININE SERUM 3.3 mg/dL (0.6-1.0); MAGNESIUM 1.7 mg/dL (1.8-2.4); PHOSPHOROUS 5.6 mg/dL (2.5-4.9); POTASSIUM SERUM 5.2 mmol/L (3.5-5.1); RED CELL DISTRIBUTION WIDTH 17.7 % (11.5-14.5)
[2017-11-13 08:13] VITALS: BP 96/63
[2017-11-13 12:14] VITALS: BP 114/71
[2017-11-13] MEDS ORDERED: IPRATROPIUM BROM3 M2 HHN (13:09)
[2017-11-13 16:15] VITALS: BP 108/61
== END 2017-11-13 18:22 | disposition home or self-care (01) | DRG 425 ==
LOC: ED 14:45 → DU 18:55
PROVIDERS: Family Medicine; Specialist
DX: E87.8 Other disorders of electrolyte and fluid balance, not elsewhere classified (principal); N17.0 Acute kidney failure with tubular necrosis; E74.00 Glycogen storage disease, unspecified; N18.6 End stage renal disease; Z99.2 Dependence on renal dialysis; Z91.15 Patient's noncompliance with renal dialysis; D63.1 Anemia in chronic kidney disease; E78.5 Hyperlipidemia, unspecified; E03.9 Hypothyroidism, unspecified; F32.9 Major depressive disorder, single episode, unspecified; M54.32 Sciatica, left side
CPT/HCPCS: 36600; 82962; 83880; 84439; 94150; 97110-GP; J0885-EC; J2060; J3010; J7030; J7620; Q0092

== ENCOUNTER 2018-02-17 19:36 | Emergency (ER) | payer MEDICAID ==
[~2018-02-17] VITALS: Ht 149.9 cm; Wt 49.0 kg
[~2018-02-17 19:36] MED LIST changes: +ALLOPURINOL300 M1 PO; +IPRATROPIUM BROM3 M2 HHN; +PRO30 PO; +TRAZODONE50 M1 PO
[2018-02-17 19:47] VITALS: Ht 149.9 cm; Wt 49.0 kg
[2018-02-17 20:59] VITALS: BP 98/65
== END 2018-02-17 20:59 | disposition home or self-care (01) ==
LOC: ED 19:36
DX: H00.013 Hordeolum externum right eye, unspecified eyelid (principal); I12.9 Hypertensive chronic kidney disease with stage 1 through stage 4 chronic kidney disease, or unspecified chronic kidney disease; N18.9 Chronic kidney disease, unspecified

== ENCOUNTER 2018-03-29 15:12 | Emergency (ER) | payer MEDICAID ==
[~2018-03-29] VITALS: Ht 152.4 cm; Wt 54.4 kg
[2018-03-29 15:28] VITALS: Ht 152.4 cm; Wt 54.4 kg
[2018-03-29 16:31] LABS: BASOPHIL % 0.6 % (0-2); PLATELET COUNT 217 x10^3mcL (130-400)
[2018-03-29 16:35] LABS: RED CELL DISTRIBUTION WIDTH 16.6 % (11.5-14.5)
[2018-03-29 16:48] LABS: ALKALINE PHOSPHATASE 173 U/L (46-116); ALT/SGPT 41 U/L (14-59); AMYLASE 82 U/L (25-115); AST/SGOT 28 U/L (15-37); BILIRUBIN TOTAL 0.53 mg/dL (0.20-1.00); CARBON DIOXIDE 24.9 mmol/L (21-32); CHLORIDE SERUM 100 mmol/L (98-107); GLUCOSE SERUM 84 mg/dL (74-106); HDL CHOLESTEROL 48 mg/dL (40-60); LIPASE 117 IU/L (73-393); MAGNESIUM 2.4 mg/dL (1.8-2.4); POTASSIUM SERUM 3.1 mmol/L (3.5-5.1); SODIUM SERUM 140 mmol/L (136-145); TOTAL PROTEIN, SERUM 8.1 g/dL (6.4-8.2)
[2018-03-29 16:49] LABS: CHOLESTEROL 208 mg/dL (<200); GFR1 8 mL/min; T4(THYROXINE) 4.6 ug/dL (4.7-13.3)
[2018-03-29 16:51] LABS: CREATININE SERUM 6.6 mg/dL (0.6-1.0)
[2018-03-29 17:08] LABS: UA SPECIFIC GRAVITY 1.015 (1.005-1.035); microscopic required? YES; urine erythrocyte 1+ (NEGATIVE)
[2018-03-29 17:21] LABS: AMPHETAMINE QUAL UR NONE DETECTED (See below)
[2018-03-29 19:22] VITALS: BP 116/68
== END 2018-03-29 19:22 | disposition home or self-care (01) ==
LOC: ED 15:12
PROVIDERS: Emergency Medicine
DX: F41.9 Anxiety disorder, unspecified (principal); I12.0 Hypertensive chronic kidney disease with stage 5 chronic kidney disease or end stage renal disease; N18.6 End stage renal disease; E74.01 von Gierke disease; E03.9 Hypothyroidism, unspecified; M10.9 Gout, unspecified; Z99.2 Dependence on renal dialysis; Z76.5 Malingerer [conscious simulation]; Z86.2 Personal history of diseases of the blood and blood-forming organs and certain disorders involving the immune mechanism; Z98.890 Other specified postprocedural states
CPT/HCPCS: 36600; 82962; G0480; J2060; Q0092

== ENCOUNTER 2018-09-08 21:12 | Inpatient (IN) | payer MEDICAID ==
[~2018-09-08] VITALS: Ht 149.9 cm; Wt 47.6 kg
[2018-09-08 21:23] VITALS: Ht 149.9 cm; Wt 47.6 kg
[2018-09-08 22:25] LABS: PLATELET COUNT 234 x10^3mcL (130-400)
[2018-09-08 22:29] LABS: RED CELL DISTRIBUTION WIDTH 17.8 % (11.5-14.5)
[2018-09-08 22:44] LABS: ALBUMIN 3.6 g/dL (3.4-5.0); BILIRUBIN TOTAL 0.49 mg/dL (0.20-1.00); CARBON DIOXIDE 11.1 mmol/L (21-32); POTASSIUM SERUM 3.3 mmol/L (3.5-5.1); TOTAL PROTEIN, SERUM 7.5 g/dL (6.4-8.2)
[2018-09-08 22:58] LABS: CREATININE SERUM 16.9 mg/dL (0.6-1.0); MONOCYTE 1 % (0-7); SEGMENTED NEUTROPHILS 79 % (37-75)
[2018-09-08 23:01] LABS: PLATELET MORPHOLOGY PLATELETS NORMAL; rbc morphology (normal/abnorm) ABNORMAL (NORMAL)
[2018-09-09 01:55] LABS: T3 TOTAL 0.28 ng/mL
[2018-09-09 02:38] LABS: HDL CHOLESTEROL 35 mg/dL (40-60); MAGNESIUM 2.9 mg/dL (1.8-2.4)
[2018-09-09 02:39] LABS: CHOLESTEROL 222 mg/dL (<200); CHOLESTEROL/HDL RATIO 6.3; TRIGLYCERIDES 1519 mg/dL (<150)
[2018-09-09 02:42] LABS: PHOSPHOROUS 10.4 mg/dL (2.5-4.9)
[2018-09-09] MEDS ORDERED: LAMICTAL150 MG (03:01)
[2018-09-09] MEDS ORDERED: SEROQUEL50 M1 PO (03:03)
[2018-09-09] MEDS ORDERED: ATIVAN0.5 M1 (03:03)
[2018-09-09 03:06] LABS: FREE T4 0.36 ng/dL (0.76-1.46)
[2018-09-09 03:12] LABS: FREE THYROXINE INDEX 0.3 ug/dL (1.4-4.5); T4(THYROXINE) 0.9 ug/dL (4.7-13.3)
[2018-09-09 04:18] VITALS: BP 104/67
[2018-09-09 06:28] LABS: CALCIUM 10.4 mg/dL (8.5-10.1); CARBON DIOXIDE 12.2 mmol/L (21-32); POTASSIUM SERUM 3.9 mmol/L (3.5-5.1)
[2018-09-09 06:41] LABS: CREATININE SERUM 15.9 mg/dL (0.6-1.0)
[2018-09-09 06:46] LABS: PLATELET COUNT 215 x10^3mcL (130-400)
[2018-09-09 06:47] LABS: RED CELL DISTRIBUTION WIDTH 21.4 % (11.5-14.5)
[2018-09-09 08:03] VITALS: BP 91/63
[2018-09-09 10:01] LABS: BAND NEUTROPHIL 0 % (0-10); BASOPHIL 0 % (0-2); MONOCYTE 2 % (0-7); SEGMENTED NEUTROPHILS 75 % (37-75); rbc morphology (normal/abnorm) ABNORMAL (NORMAL)
[2018-09-09 10:02] LABS: PLATELET MORPHOLOGY PLATELETS NORMAL
[2018-09-09] MEDS ORDERED: SEROQUEL25 MG PO (11:28)
[2018-09-09] MEDS ORDERED: LAM25 PO (11:29)
[2018-09-09 12:59] VITALS: BP 101/67
[2018-09-09 16:31] VITALS: BP 94/60
[2018-09-09 20:46] VITALS: BP 100/70
[2018-09-10 05:46] VITALS: BP 98/58
[2018-09-10 06:02] LABS: UA SPECIFIC GRAVITY <=1.005 (1.005-1.035); microscopic required? YES; urine erythrocyte 2+ (NEGATIVE)
[2018-09-10 06:37] LABS: PLATELET COUNT 209 x10^3mcL (130-400)
[2018-09-10 06:51] LABS: CALCIUM 8.4 mg/dL (8.5-10.1); CARBON DIOXIDE 21.5 mmol/L (21-32); PHOSPHOROUS 4.4 mg/dL (2.5-4.9)
[2018-09-10 07:08] LABS: MAGNESIUM 1.7 mg/dL (1.8-2.4)
[2018-09-10 07:23] LABS: RED CELL DISTRIBUTION WIDTH 24.1 % (11.5-14.5)
[2018-09-10 07:58] LABS: CREATININE SERUM 7.2 mg/dL (0.6-1.0); POTASSIUM SERUM 2.4 mmol/L (3.5-5.1)
[2018-09-10 09:40] VITALS: BP 97/65
[2018-09-10 10:30] LABS: BAND NEUTROPHIL 0 % (0-10); BASOPHIL 0 % (0-2); MONOCYTE 3 % (0-7); SEGMENTED NEUTROPHILS 77 % (37-75)
[2018-09-10 10:31] LABS: PLATELET MORPHOLOGY PLATELETS NORMAL; rbc morphology (normal/abnorm) ABNORMAL (NORMAL)
[2018-09-10 17:39] VITALS: BP 96/67
[2018-09-10 21:32] VITALS: BP 101/70
[2018-09-11 05:06] VITALS: BP 102/65
[2018-09-11 07:34] LABS: CALCIUM 8.5 mg/dL (8.5-10.1); CARBON DIOXIDE 29.4 mmol/L (21-32); CREATININE SERUM 3.4 mg/dL (0.6-1.0); PHOSPHOROUS 1.5 mg/dL (2.5-4.9); POTASSIUM SERUM 3.1 mmol/L (3.5-5.1)
[2018-09-11 07:35] LABS: PLATELET COUNT 229 x10^3mcL (130-400)
[2018-09-11 08:02] LABS: RED CELL DISTRIBUTION WIDTH 25.6 % (11.5-14.5)
[2018-09-11 09:47] VITALS: BP 95/67
[2018-09-11 12:47] VITALS: BP 97/67
[2018-09-11 14:14] LABS: BAND NEUTROPHIL 0 % (0-10); BASOPHIL 0 % (0-2); MONOCYTE 4 % (0-7); SEGMENTED NEUTROPHILS 74 % (37-75)
[2018-09-11 14:16] LABS: PLATELET MORPHOLOGY PLATELETS DECREASED; rbc morphology (normal/abnorm) ABNORMAL (NORMAL)
[2018-09-11 16:43] VITALS: BP 102/70
[2018-09-11 19:20] VITALS: BP 103/77
[2018-09-12 06:12] VITALS: BP 102/71
[2018-09-12 06:15] LABS: BASOPHIL % 0.6 % (0-2); PLATELET COUNT 185 x10^3mcL (130-400)
[2018-09-12 06:34] LABS: CALCIUM 7.4 mg/dL (8.5-10.1); CARBON DIOXIDE 21.3 mmol/L (21-32); MAGNESIUM 2.1 mg/dL (1.8-2.4); PHOSPHOROUS 3.9 mg/dL (2.5-4.9); POTASSIUM SERUM 4.9 mmol/L (3.5-5.1)
[2018-09-12 06:39] LABS: RED CELL DISTRIBUTION WIDTH 24.8 % (11.5-14.5)
[2018-09-12 07:37] LABS: CREATININE SERUM 4.5 mg/dL (0.6-1.0)
[2018-09-12 10:06] VITALS: BP 100/65
[2018-09-12] MEDS ORDERED: FER300 PO (13:35)
[2018-09-12] MEDS ORDERED: PROTONIX40 MG/Pac1 PO (13:38)
[2018-09-12 14:23] VITALS: BP 100/65
== END 2018-09-12 16:56 | disposition home or self-care (01) | DRG 241 ==
LOC: ED 21:12 → DU 09-09 00:55 → MU 09-09 00:55 → DU 09-09 03:38 → MU 09-11 10:34
PROVIDERS: Emergency Medicine; Internal Medicine; ADMIT General Practice
PROC: 0DB78ZX Excision of Stomach, Pylorus, Via Natural or Artificial Opening Endoscopic, Diagnostic (ICD-10-PCS; principal; 2018-09-10 08:00)
DX: K29.81 Duodenitis with bleeding (principal); E74.01 von Gierke disease; K85.90 Acute pancreatitis without necrosis or infection, unspecified; E87.2 Acidosis; I12.0 Hypertensive chronic kidney disease with stage 5 chronic kidney disease or end stage renal disease; N18.6 End stage renal disease; E83.42 Hypomagnesemia; R16.0 Hepatomegaly, not elsewhere classified; K29.71 Gastritis, unspecified, with bleeding; K22.70 Barrett's esophagus without dysplasia; D50.0 Iron deficiency anemia secondary to blood loss (chronic); E87.6 Hypokalemia; M10.9 Gout, unspecified; E78.5 Hyperlipidemia, unspecified; E03.9 Hypothyroidism, unspecified; Z99.2 Dependence on renal dialysis; Z68.21 Body mass index [BMI] 21.0-21.9, adult
CPT/HCPCS: 43235; 83880; 84439; J0885-EC; J1200; J1610; J2250; J2270; J2310; J2405; J2550; J3010; J3475; J3480; J3490; J7030; J7040; P9016; Q0092

== ENCOUNTER 2019-02-24 20:59 | Inpatient (IN) | payer OTHER ==
[~2019-02-24] VITALS: Ht 149.9 cm; Wt 44.6 kg
[~2019-02-24 20:59] MED LIST changes: +ATIVAN0.5 M1; +FER300 PO; +LAM25 PO; +LAMICTAL150 MG; +PROTONIX40 MG/Pac1 PO; +SEROQUEL25 MG PO; +SEROQUEL50 M1 PO
[2019-02-24 21:09] VITALS: Ht 149.9 cm; Wt 44.6 kg
[2019-02-24 22:17] LABS: BASOPHIL % 0.8 % (0-2); PLATELET COUNT 235 x10^3mcL (130-400)
[2019-02-24 22:18] LABS: RED CELL DISTRIBUTION WIDTH 16.4 % (11.5-14.5)
[2019-02-24 22:49] LABS: ALBUMIN 4.6 g/dL (3.4-5.0); BILIRUBIN TOTAL 0.5 mg/dL (0.20-1.00); CARBON DIOXIDE 10.2 mmol/L (21-32); POTASSIUM SERUM 3.3 mmol/L (3.5-5.1)
[2019-02-24 22:50] LABS: TOTAL PROTEIN, SERUM 9.7 g/dL (6.4-8.2)
[2019-02-24 22:53] LABS: CREATININE SERUM 8.9 mg/dL (0.6-1.0)
[2019-02-25 00:02] LABS: microscopic required? YES; urine erythrocyte 3+ (NEGATIVE)
[2019-02-25 00:10] LABS: AMPHETAMINE QUAL UR NONE DETECTED (See below)
[2019-02-25 01:18] VITALS: BP 117/69
[2019-02-25 04:52] VITALS: BP 115/65
[2019-02-25 06:32] LABS: BASOPHIL % 0.2 % (0-2); PLATELET COUNT 206 x10^3mcL (130-400)
[2019-02-25 06:54] LABS: RED CELL DISTRIBUTION WIDTH 16.1 % (11.5-14.5)
[2019-02-25 06:57] LABS: CALCIUM 8.9 mg/dL (8.5-10.1)
[2019-02-25 08:06] LABS: CARBON DIOXIDE 9.4 mmol/L (21-32); CREATININE SERUM 8.6 mg/dL (0.6-1.0)
[2019-02-25 09:24] VITALS: BP 122/81
[2019-02-25 12:40] VITALS: BP 109/67
[2019-02-25 16:09] VITALS: BP 105/66
[2019-02-25 18:49] LABS: CALCIUM 9.3 mg/dL (8.5-10.1)
[2019-02-25 18:58] LABS: CREATININE SERUM 4.5 mg/dL (0.6-1.0); POTASSIUM SERUM 2.8 mmol/L (3.5-5.1)
[2019-02-25 20:46] VITALS: BP 92/59
[2019-02-26 05:42] VITALS: BP 97/62
[2019-02-26 06:38] LABS: PLATELET COUNT 194 x10^3mcL (130-400)
[2019-02-26 06:42] LABS: BASOPHIL % 0 % (0-2); RED CELL DISTRIBUTION WIDTH 16.2 % (11.5-14.5)
[2019-02-26 06:49] LABS: CALCIUM 8.6 mg/dL (8.5-10.1); CARBON DIOXIDE 17.5 mmol/L (21-32); MAGNESIUM 1.8 mg/dL (1.8-2.4); PHOSPHOROUS 4.9 mg/dL (2.5-4.9); POTASSIUM SERUM 3.4 mmol/L (3.5-5.1)
[2019-02-26 09:12] VITALS: BP 101/64
[2019-02-26 12:51] VITALS: BP 99/65
[2019-02-26 16:35] VITALS: BP 99/62
[2019-02-26 16:57] VITALS: BP 101/64
[2019-02-26 19:54] VITALS: BP 108/67
== END 2019-02-26 20:00 | disposition home or self-care (01) | DRG 282 ==
LOC: ED 20:59 → DU 23:18
PROVIDERS: Emergency Medicine; ADMIT Internal Medicine
PROC: 5A1D70Z Performance of Urinary Filtration, Intermittent, Less than 6 Hours Per Day (ICD-10-PCS; principal; 2019-02-25)
PROC: 5A1D70Z Performance of Urinary Filtration, Intermittent, Less than 6 Hours Per Day (ICD-10-PCS; 2019-02-26)
DX: K85.90 Acute pancreatitis without necrosis or infection, unspecified (principal); E74.01 von Gierke disease; I12.0 Hypertensive chronic kidney disease with stage 5 chronic kidney disease or end stage renal disease; E87.8 Other disorders of electrolyte and fluid balance, not elsewhere classified; N25.89 Other disorders resulting from impaired renal tubular function; N18.6 End stage renal disease; F43.10 Post-traumatic stress disorder, unspecified; E87.1 Hypo-osmolality and hyponatremia; E03.9 Hypothyroidism, unspecified; E78.00 Pure hypercholesterolemia, unspecified; E78.1 Pure hyperglyceridemia; F31.9 Bipolar disorder, unspecified; F41.9 Anxiety disorder, unspecified; E78.5 Hyperlipidemia, unspecified; E87.6 Hypokalemia; M10.9 Gout, unspecified; Z99.2 Dependence on renal dialysis; Z68.1 Body mass index [BMI] 19.9 or less, adult; Z91.19 Patient's noncompliance with other medical treatment and regimen; Z81.8 Family history of other mental and behavioral disorders; Z56.0 Unemployment, unspecified; Z79.899 Other long term (current) drug therapy
CPT/HCPCS: 83880; C9113; G0378; G0480; J2150; J2405; J3010; J3480; J7030; J7040